=== PATIENT | female | born 1995 | race Caucasian/White ===

== ENCOUNTER 2020-07-05 08:58 | Outpatient (CLI) | payer OTHER, SELFPAY ==
[2020-07-05 09:37] LABS: Hematocrit 34.1 % (37.0-47.0); Hemoglobin 11.7 g/dL (12.0-15.0); Mean Corpuscular HGB Conc 34.3 g/dl (32-36); Mean Corpuscular Hemoglobin 32.5 pg (26-34); Mean Corpuscular Volume 94.7 fl (80-100); Mean Platelet Volume 12.7 fl (7.4-10.4); Platelet Count Result 161 k/mm3 (150-375); Red Cell Distribution Width 13.4 % (11.5-14.5); White Blood Count 8.5 K/mm3 (4.5-10.0)
[2020-07-07 07:02] LABS: Rapid Plasma Reagin Non-Reactive (NonReactive)
== END 2020-07-05 08:59 | disposition home or self-care (01) ==
PROVIDERS: Visit Provider Obstetrics & Gynecology
DX: Z34.93 Encounter for supervision of normal pregnancy, unspecified, third trimester (principal); Z3A.00 Weeks of gestation of pregnancy not specified
CPT/HCPCS: 36415; 85027; 86592; 86850; 86900; 86901

== ENCOUNTER 2020-07-07 05:34 | Inpatient (IN) | payer OTHER, SELFPAY ==
--- NOTE | 2020-06-20 14:58 | PC.NURSE ---
PATIENT STATES BABY IS BREECH WITH FEET AND HANDS BY FACE.PATIENT STATES DR GERBER HAS NOT SCHEDULE C/S YET INSTRUCTED PATIENT IF SHE IS A C/S,SHE WILL NEED TO BE IN OB 2 HOURS BEFORE SURGERY AND NOTHING BY MOUTH THE NIGHT BEFORE SURGERY. PATIENT VERBALIZED HER UNDERSTANDING PATIENT GIVEN REQUISITION FOR PRE-OP LAB DRAW
[2020-07-07] VITALS (60 sets, daily range): BP systolic 65–118; BP diastolic 44–83; PULSE 51–133; RESP 14–18; TEMP 36.1–36.9; O2SAT 94–100; BMI 34.0
[2020-07-07] MEDS: LACTATED RINGERS 1,000 ML 999 ML IV CONT ×3 (06:02→08:54)
--- NOTE | 2020-07-07 06:34 | LDADM ---
This patient, Tressa Blanco, was admitted to Labor/Delivery/Recovery 120 on 07/07/20 at 05:34. Plans for labor, pain management and were discussed with patient. Patient/family oriented to hospital policies and general routines including ID bracelet, bed and alarms, visiting hours, pain management, procedures, bathroom and other care routines, personal items, smoking policy, room service/diet and guest tray routines, security routines, and visiting hours. Patient/Family are encouraged to report perceived risks to care and to ask questions if they do not understand what they are told or what they should do. See OBIX for further documentation.
--- NOTE | 2020-07-07 06:44 | WPDANESEPPF ---
Anes - Initial Pre Proc Eval Procedure: Operation Date: 07/07/20 07:30 Proposed Procedures p Primary Section - Albert Le MD Date/Time: 07/07/20 06:44 Surgeon: Albert Le MD Pre Op Diagnosis: Section Patient Data Age: 24 Gender: F Height: 1.6 m Weight: 87 kg Last Vital Signs Pulse 91 07/07/20 05:53 BP 111/73 07/07/20 05:53 Allergies Allergy/AdvReac Type Severity Reaction Status Date / Time No Known Allergies Allergy Verified 06/20/20 14:41 Home Medications Medication Instructions Recorded Confirmed Type prenat.vits,salvador,bvj-rfwd-nizvj 1 tablet PO DAILY 06/20/20 06/20/20 History [ #2] valacyclovir 500 mg PO Q12H 06/20/20 06/20/20 History Patient hx anesthesia problems: none Family hx anesthesia problems: none PMFSH Family History Family History (Updated 06/20/20 @ 14:43 by Herminio Fine RN) Father Diabetes mellitus Grandparent Diabetes mellitus Heart disease Social History Social History Years smoked: 2 Smoking status: Former smoker Tobacco type: cigarettes Second hand tobacco smoke exposure: Yes Substance use: never Spiritual care concerns: No Anes - Eval Final PreProcedure Day of Procedure 07/07/20 06:44 Patient weight: obese Heart: regular rate and rhythm Lungs: clear to auscultation and normal air movement Airway: Mallampati scale class II Neurological: alert and oriented Last oral intake: >/= 8 hours ASA classification: II Emergent: no Anesthetic plan: proceed Anesthesia type and monitoring: regional spinal and standard monitoring Informed Consent: The patient's anesthetic plan and its attendant risks and benefits were discussed with the patient/family/POA. Questions were solicited and answers provided to the satisfaction of the patient/family/POA.
[2020-07-07] MEDS: ceFAZolin 2 GM/D5W 50 ML 2 GM/50 ML BAG IVPB (07:37)
[2020-07-07] MEDS: KETOROLAC 30 MG/ML VIAL (*BKC) IV PUSH ×3 (08:08→21:50)
--- NOTE | 2020-07-07 08:43 | PM.PROC ---
Procedure Note - Detailed Date of procedure: 07/07/20 Pre-op diagnosis: Section Breech, jones Post-op diagnosis: same Procedure performed: low-transverse delivery Description of procedure: The patient was taken the operating room. She was prepped and draped in the dorsal supine position with leftward tilt after induction of spinal anesthetic. When anesthesia was found to be adequate a low-transverse skin incision was made and carried down to the level the fascia with the knife. The fascial incision was made at the midline with a scalpel. The fascial incision was extended laterally with Shearer scissors. The fascia was tented upward superior and inferior with Conrad clamps. The rectus muscles were dissected off bluntly. The rectus muscles at the midline. The preperitoneal fat was dissected bluntly at the superior aspect of the separate the rectus muscles. The peritoneal cavity was entered bluntly in the same area. The peritoneal incision was extended superior and inferior with good visualization of bladder. Bladder blade was inserted. A low-transverse incision was made on the uterus with the scalpel. It was carried down the level of the amniotic cavity with a knife. The amniotic cavity bluntly. The uterine incision was made laterally with blunt traction. The infant was delivered. The cord was clamped and cut. The was handed off to waiting pediatric staff. Cord bloods were obtained. The placenta was removed manually. The uterus was exteriorized. Uterus cleared of all clots and debris. Uterus closed in 0 Vicryl in a running locked fashion. An imbricating layer of 0 Vicryl was also placed on the to bolster the closure. The uterus was returned to the abdomen. The gutters were cleared of all clots and debris. The fascia was closed 0 Vicryl in a running fashion. Subcutaneous tissue was irrigated and bleeding areas were cauterized. The skin was closed with subcuticular absorbable manuelito. The incision was covered with derma marcial. The patient tolerated the procedure well. She was taken recovery room stable condition. Sponge, lap, needle counts were correct x2. Anesthesia: spinal Surgeon: Albert Le MD Drains: No Packing: No Pathology: none sent Complications: No immediate complications Condition: stable Disposition: floor Findings: Normal maternal anatomy. Average size infant with normal Apgars.
[2020-07-07] MEDS: OXYTOCIN 30 UNITS/NS 500 ML 30 UNITS/500 ML BAG 125 UNITS IV CONT (08:54)
[2020-07-07] MEDS: diphenhydrAMINE HCl INJ 50 MG/ML VIAL 12.5 MG IV PUSH (09:30)
--- NOTE | 2020-07-07 10:50 | PC.NURSE ---
Patient transferred to post room #286 via stretcher. Support person present. Oriented to unit, room, information board, rooming in, admission packet and security measures. Patient verbalizes understanding.
[2020-07-07] MEDS: DEXTROSE 5%/0.45% SOD CHL 1,000 ML 125 ML IV CONT (12:32)
[2020-07-07] MEDS: LORATADINE 10 MG TABLET PO (12:32)
[2020-07-07] MEDS: DOCUSATE SODIUM 100 MG CAPSULE PO (16:15)
[2020-07-07] MEDS: HYDROcodone/acetaminophen (*CRX) 5-325 MG TABLET 1 TAB PO (21:50)
[2020-07-08 04:30] VITALS: BP 114/65; PULSE 101; RESP 16; TEMP 36.7
[2020-07-08] MEDS: HYDROcodone/acetaminophen (*CRX) 10-325 MG TABLET 1 TAB PO ×5 (04:35→20:45)
[2020-07-08] MEDS: IBUPROFEN 600 MG TABLET PO ×3 (04:35→20:45)
[2020-07-08 05:28] LABS: Basophils Percent Auto 0.2 % (0.2-1.2); Eosinophils Absolute Auto 0.1 K/mm3 (0-0.3); Hematocrit 31.9 % (37.0-47.0); Hemoglobin 10.7 g/dL (12.0-15.0); Immature Granulocyte Absolute 0.06 K/mm3 (0.00-0.031); Immature Granulocyte Percent A 0.7 % (0-0.5); Lymphocytes Absolute Auto 1.17 K/mm3 (0.9-3.2); Lymphocytes Percent Auto 13.2 % (18.3-44.2); Mean Corpuscular HGB Conc 33.5 g/dl (32-36); Mean Corpuscular Hemoglobin 32.6 pg (26-34); Mean Corpuscular Volume 97.3 fl (80-100); Mean Platelet Volume 12.9 fl (7.4-10.4); Monocytes Absolute Auto 0.8 K/mm3 (0.1-0.6); Monocytes Percent Auto 8.6 % (2.6-8.5); Neutrophils Absolute Auto 6.8 K/mm3 (1.3-6.7); Neutrophils Percent Auto 76.3 % (45.5-73.1); Platelet Count Result 142 k/mm3 (150-375); Red Blood Count 3.28 M/mm3 (4.2-5.4); Red Cell Distribution Width 13.6 % (11.5-14.5); White Blood Count 8.9 K/mm3 (4.5-10.0)
--- NOTE | 2020-07-08 07:33 | PM.OBPNVD ---
OB - PN: Subj Subjective Date/time seen: 07/08/20 07:33 OB - PN: Obj Data Labs CBC & Chem 7: 07/08/20 04:32 Labs: Laboratory Results - last 24 hr 07/08/20 04:32 WBC 8.9 RBC 3.28 L Hgb 10.7 L Hct 31.9 L MCV 97.3 MCH 32.6 MCHC 33.5 RDW 13.6 Plt Count 142 L MPV 12.9 H Immature Gran % (Auto) 0.7 H Neut % (Auto) 76.3 H Lymph % (Auto) 13.2 L [place] % (Auto) 8.6 H Eos % (Auto) 1.0 Baso % (Auto) 0.2 Lymph # (Auto) 1.17 [place] # (Auto) 0.8 H Eos # (Auto) 0.1 Baso # (Auto) 0.0 Abs Immat Gran (auto) 0.06 H Absolute Neuts (auto) 6.8 H Absolute Nucleated RBC 0.0 Nucleated RBC % 0.0 OB - PN A/P Plan day: 1 Plan: routine care Time Spent With Patient Time: Total time spent is greater than 50% in coordination of care (as documented) at patient's floor/unit and/or counseling patient: Exam Const: General: cooperative Limitations: no limitations
[2020-07-08 08:30] VITALS: BP 113/75; PULSE 92; RESP 20; TEMP 36.9; O2SAT 100
[2020-07-08] MEDS: DOCUSATE SODIUM 100 MG CAPSULE PO ×2 (08:35→16:38)
[2020-07-08] MEDS: MULTIVIT/MIN/PREN/FOL AC/IRON TABLET 1 TAB PO (08:36)
[2020-07-08] MEDS: SIMETHICONE 80 MG TAB.CHEW PO ×4 (08:39→20:45)
--- NOTE | 2020-07-08 11:06 | WPDANLDPN2 ---
Anes-Prog Note L&D Date/Time: 07/08/20 11:06 Comfortable throughout: section Neuraxial method: spinal Epidural/Spinal procedure site: clean & non-tender Neuro status: Neuro function grossly intact. Cardiovascular status: normal Respiratory status: normal Airway patency: baseline Mental status: baseline Post-Op hydration status: normal Vital Signs: Last Vital Signs Temp 36.9 C 07/08/20 08:30 Pulse 92 07/08/20 08:30 Resp 20 07/08/20 08:30 BP 113/75 07/08/20 08:30 Pulse Ox 100 07/08/20 08:30 Pain score (VAS): 3 I/O: Intake & Output 07/07/20 07/08/20 07/08/20 23:59 07:59 15:59 Intake Total 600 Output Total 1300 600 600 Balance -1300 0 -600 Post-procedural complaints: none Patient feedback: Patient satisfied with anesthetic care.
--- NOTE | 2020-07-08 11:06 | WPDANLDNPN2 ---
Anes-Prog Note L&D-Neuraxial Date/Time: 07/08/20 11:06 Neuraxial medications: intrathecal PF morphine Opiod-related complaints: none Patient feedback: Patient satisfied with post-operative pain management.
[2020-07-08 20:44] VITALS: BP 106/72; PULSE 99; RESP 16; TEMP 36.8
[2020-07-09] MEDS: HYDROcodone/acetaminophen (*CRX) 10-325 MG TABLET 1 TAB PO ×3 (01:26→11:44)
[2020-07-09] MEDS: SIMETHICONE 80 MG TAB.CHEW PO ×3 (01:27→11:44)
--- NOTE | 2020-07-09 06:44 | PM.OBPNVD ---
OB - PN: Subj Subjective Date/time seen: 07/09/20 06:44 Patient comments: no complaints baby status: doing well OB - PN: Obj Data Labs CBC & Chem 7: 07/08/20 04:32 OB - PN A/P Plan day: 2 Plan: routine care and discharge home Time Spent With Patient Time: Total time spent is greater than 50% in coordination of care (as documented) at patient's floor/unit and/or counseling patient: Exam Const: General: cooperative Limitations: no limitations
--- NOTE | 2020-07-09 06:45 | PM.OBDSVD ---
DS: Admitting Diagnosis Admitting Diagnosis Admitting Diagnosis: Section OB - DS: Summary OB Procedures : None OB Procedures Intrapartum: OB Procedures: : None Peripartum Data Procedures: Procedures Operation Date: 07/07/20 07:30 Actual Procedures Side Surgeon p Section Albert Le MD Time Spent with Patient Time attestation: Total time spent providing and/or coordinating discharge services: Discharge Plan Discharge Attending physician on discharge: Albert Le Discharging Clinician: Mary Bolton Patient Disposition: Home, Self-Care Activity: pelvic rest Diet: regular Patient Instructions: Antibiotic Form Stand Alone Forms: General Discharge Information Follow-up/Referrals: Albert Le MD [Physician] - 1 Week Discharge Medications: New hydrocodone-acetaminophen 5-325 mg Tablet 1 tab PO Q3H PRN (Reason: Moderate Pain (4-6)) Qty: 20 RF: 0 Continued valacyclovir 500 mg Tablet 500 mg PO Q12H RF: 0 #2 Tablet 1 tablet PO DAILY RF: 0 Date of admission: 07/07/20 05:34 Primary Care Provider: PHYSICIAN,PUBLICITY CONSULTANT Admitting Provider: Albert Le Attending physician on admission: Albert Le Condition: Stable
[2020-07-09 08:20] VITALS: BP 124/62; PULSE 101; RESP 18; TEMP 37.3; O2SAT 97
[2020-07-09] MEDS: IBUPROFEN 600 MG TABLET PO (08:22)
[2020-07-09] MEDS: DOCUSATE SODIUM 100 MG CAPSULE PO (10:35)
[2020-07-09] MEDS: MEASLES,MUMPS,RUBELLA VACCINE 0.5 ML VIAL SUB-Q (10:46)
[2020-07-12 09:40] VITALS: BP 119/72; PULSE 92; RESP 20; TEMP 36.6; O2SAT 100
--- NOTE | 2020-08-04 09:55 | PM.IMHP ---
H&P: HPI History of Present Illness Date/Time: 08/04/20 09:55 Chief Complaint: Term Narrative: Tressa Blanco is a 24 year old female with term gestation in the jones breech position. We have agreed to perform delivery. She understands the risks patient says that injuries may occur that result in hospitalization, more surgery, and severe illness. She understands there is risk of hemorrhage and infection. She denies any nausea, vomiting, fever, chills. She denies any loss of fluid, vaginal bleeding, contractions. Review of Systems Constitutional: Constitutional: Reports no additional constitutional complaints, Denies fatigue, Denies headache(s), Denies lethargy and Denies weakness Eyes: Eyes: Reports no additional eye complaints, Denies blurry vision and Denies photophobia ENT: Reports as per HPI, Denies headache(s) and Denies neck pain Cardiovascular: Cardiovascular: Denies chest pain, Denies diaphoresis, Denies leg edema, Denies palpitations and Denies dyspnea Respiratory: Respiratory: Denies hemoptysis, Denies dyspnea and Denies wheezing Gastrointestinal: Gastrointestinal: Denies abdominal pain, Denies melena, Denies bloating, Denies hematochezia, Denies nausea and Denies vomiting Genitourinary: Genitourinary: Reports no additional female genitourinary complaints Musculoskeletal: Musculoskeletal: Denies joint swelling, Denies neck pain, Denies numbness and Denies stiffness Neurologic: Denies Abnormal speech present, Denies confusion, Denies headache(s), Denies numbness and Denies weakness Psychiatric: Psychiatric: Denies anxiety, Denies confusion, Denies depression, Denies homicidal ideation and Denies suicidal ideation Endocrine: Endocrine: Denies fatigue and Denies palpitations Allergic/Immunologic: Allergic/Immunologic: Denies wheezing [facility] Family History Family History (Updated 06/20/20 @ 14:43 by Herminio Fine RN) Father Diabetes mellitus Grandparent Diabetes mellitus Heart disease Social History Social History Years smoked: 2 Smoking status: Former smoker Tobacco type: cigarettes Second hand tobacco smoke exposure: Yes Substance use: never Spiritual care concerns: No Meds Home Medications and Allergies Home Medications Medication Instructions Recorded Confirmed Type prenat.vits,salvador,gfa-zyny-eylxm 1 tablet PO DAILY 06/20/20 06/20/20 History valacyclovir 500 mg PO Q12H 06/20/20 06/20/20 History hydrocodone-acetaminophen 1 tab PO Q3H PRN #20 tablet 07/09/20 Rx Allergies Allergy/AdvReac Type Severity Reaction Status Date / Time No Known Allergies Allergy Verified 06/20/20 14:41 Exam Const: General: healthy appearing, comfortable and no acute distress; No confusion Orientation/consciousness: No confusion Eyes: Direct Ophthalmoscopy: No photophobia Resp: Auscultation: clear to auscultation bilaterally, no rales, no rhonchi and no wheezes Cardio: Rate: regular rate Heart sounds: no click, no murmurs and no rubs GI: Inspection: non-distended GI Palp: No abdominal tenderness Auscultation: normal bowel sounds Neuro: General: No confusion Speech: No Abnormal speech present Extrem: General: normal to inspection, no pedal edema and no calf tenderness Assessment and Plan Assessment and plan (1) Term : Code(s): Z34.90 - Encounter for supervision of normal , unspecified, unspecified trimester Status: Acute (2) Breech presentation: Code(s): O32.1XX0 - Maternal care for breech presentation, not applicable or unspecified Status: Acute Assessment and Plan: This patient is a 24-year-old female with a term gestation in the jones breech position. Referred from delivery. She understands the risks, benefits, and alternatives. She has completed the informed consent process and is ready to proceed.
== END 2020-07-09 12:20 | disposition home or self-care (01) | DRG 540 ==
LOC: ANHLDR 05:51 → ANHOB2 10:54
PROVIDERS: Admitting Provider Obstetrics & Gynecology; Visit Provider Obstetrics & Gynecology
PROC: 10D00Z1 Extraction of Products of Conception, Low, Open Approach (ICD-10-PCS; CPT 59514; principal; 2020-07-07 07:30)
DX: O32.1XX0 Maternal care for breech presentation, not applicable or unspecified (principal); O99.214 Obesity complicating childbirth; E66.9 Obesity, unspecified; Z87.891 Personal history of nicotine dependence; Z3A.39 39 weeks gestation of pregnancy; Z37.0 Single live birth
CPT/HCPCS: 36415; 85025; 90710; A9270; J0690; J1200; J1885; J2274; J2405; J2590; J7120

== ENCOUNTER 2021-08-17 14:59 | Emergency (ER) | payer OTHER, SELFPAY ==
[2021-08-17 15:02] VITALS: BP 110/81; PULSE 106; RESP 20; TEMP 37.2; O2SAT 99
== END 2021-08-18 04:39 | disposition left against medical advice (07) ==
LOC: ANHED 16:20
DX: R11.2 Nausea with vomiting, unspecified (principal)
CPT/HCPCS: 99199